=== PATIENT | female | born 1985 | race Caucasian/White ===

== ENCOUNTER 2021-01-23 13:06 | Emergency (ER) | payer BC, SELFPAY ==
--- NOTE | ~2021-01-23 | CT_ITS ---
EXAMINATION: CT abdomen pelvis wo con DATE: 01/23/2021 15:56 INDICATION: Left flank pain TECHNIQUE: Computed tomography (CT) of the abdomen and pelvis was performed without intravenous contr ast. The dose-length product (DLP) was 1030.53 mGy-cm. Automated exposure control and iterative recon struction technique were employed. COMPARISON: None FINDINGS: The lung bases are clear. The heart size is normal. The gallbladder is surgically absent. T he liver, spleen, pancreas, and adrenal glands are normal. There are two adjacent stones in the proxi mal left ureter which measure 6 mm in total and cause moderate left hydroureteronephrosis. No patholo gically enlarged abdominal or pelvic lymph nodes are identified. There is no free intraperitoneal gas or evidence of bowel obstruction. The appendix is normal. IMPRESSION: 1. Adjacent proximal left ureteral stones causing moderate left hydroureteronephrosis. Reviewed, dictated and finalized at location B. IMPRESSION: 1. Adjacent proximal left ureteral stones causing moderate left hydroureteronep hrosis.
--- NOTE | ~2021-01-23 | XR_ITS ---
EXAMINATION: XR abdomen/kub 1V DATE: 01/23/2021 15:52 INDICATION: Left flank pain. TECHNIQUE: A supine view of the abdomen on 2 radiographs was obtained. COMPARISON: CT abdomen and pelvis 01/23/2021 FINDINGS: There are no dilated loops of bowel. Surgical clips in the right upper quadrant are likely from cholecystectomy. There are two 3 mm stones in proximal left ureter at L3. There is a phlebolith in left pelvis. IMPRESSION: 1. Two 3 mm stones in proximal left ureter. Reviewed, dictated and finalized at location A.
[2021-01-23 13:19] VITALS: BP 158/111; PULSE 100; RESP 12; TEMP 36.4; O2SAT 100
[2021-01-23 13:31] LABS: Basophils Percent Auto 0.2 % (0.2-1.2); Eosinophils Absolute Auto 0.1 K/mm3 (0-0.3); Eosinophils Percent Auto 0.8 % (0-4.4); Hematocrit 40.6 % (37.0-47.0); Hemoglobin 13.2 g/dL (12.0-15.0); Immature Granulocyte Absolute 0.03 K/mm3 (0.00-0.031); Immature Granulocyte Percent A 0.2 % (0-0.5); Lymphocytes Absolute Auto 1.59 K/mm3 (0.9-3.2); Lymphocytes Percent Auto 12.7 % (18.3-44.2); Mean Corpuscular HGB Conc 32.5 g/dl (32-36); Mean Corpuscular Volume 89.2 fl (80-100); Mean Platelet Volume 8.9 fl (7.4-10.4); Monocytes Absolute Auto 0.5 K/mm3 (0.1-0.6); Monocytes Percent Auto 4.2 % (2.6-8.5); Neutrophils Absolute Auto 10.2 K/mm3 (1.3-6.7); Neutrophils Percent Auto 81.9 % (45.5-73.1); Platelet Count Result 315 k/mm3 (150-375); Red Blood Count 4.55 M/mm3 (4.2-5.4); Red Cell Distribution Width 13.8 % (11.5-14.5); White Blood Count 12.5 K/mm3 (4.5-10.0)
[2021-01-23 13:41] LABS: Anion Gap 10 mmol/L (8-16); Blood Urea Nitrogen 12 mg/dL (7-17); Calcium 9.1 mg/dL (8.4-10.2); Carbon Dioxide 22 mmol/L (22-30); Chloride 105 mmol/L (98-107); Estimated CRCL calculation 108 ml/min; Estimated Glomerular Filt Rate > 60; Glucose 89 mg/dL (65-105); Potassium 4.6 mmol/L (3.4-5.0); Sodium 137 mmol/L (137-145)
[2021-01-23 15:31] LABS: Add Urine Microscopic? YES; Appearance Urine Cloudy (Clear); Bacteria Urine Trace /hpf; Bilirubin Urine Negative (Negative); Blood Urine 3+ (Negative); Color Urine Amber (Yellow); Glucose Urine UA Negative (Negative); Ketones Urine Trace mg/dL (Negative); Leukocyte Esterase Ur Negative LEU/UL (Negative); Mucus Urine Rare /lpf; Nitrate Urine Negative (Negative); Protein Urine 1+ mg/dL (Negative); RBC Urine >75 /hpf (0-2); Specific Grav Ur 1.023 (1.001-1.035); Squamous Epithelial Cell Urine Moderate /hpf (Few); Urobilinogen Urine Negative mg/dL (<2.0)
--- NOTE | 2021-01-23 15:43 | ED.ABDPAIN ---
HPI - Abdominal Pain General Chief Complaint: Abdominal Pain Stated Complaint: Possible Kidney stone Time Seen by Provider: 01/23/21 15:18 Source: patient and RN notes reviewed Mode of arrival: ambulatory Limitations: no limitations History of Present Illness HPI narrative: This is a 35 year old female with history of kidney stones who presents for evaluation of left lower abdominal pain. She developed left lower abdominal pain at 9 am this morning. She reports her pain radiates to her left flank. She has associated nausea, vomiting with her pain. She has not taken anything for her pain. She denies hematuria. This pain does feel similar to previous episodes of kidney stone Related Data Allergies Allergy/AdvReac Type Severity Reaction Status Date / Time acetaminophen [From Percocet] Allergy Hallucinati Verified 01/23/21 16:14 ng codeine Allergy Unknown Verified 01/23/21 16:14 latex Allergy Unknown Verified 01/23/21 16:14 oxycodone [From Percocet] Allergy Hallucinati Verified 01/23/21 16:14 ng shellfish derived Allergy Unknown Verified 01/23/21 16:14 Sulfa (Sulfonamide Allergy Unknown Verified 01/23/21 16:14 Antibiotics) Review of Systems Review of Systems: All systems reviewed & are unremarkable except as noted in HPI and below PMFSH Past Medical History Medical History (Updated 01/23/21 @ 18:01 by Dorie Muñoz MD) Fibromyalgia Kidney stones Social History Social History (Updated 01/23/21 @ 15:47 by Dorie Muñoz MD) Smoking status: Never smoker Gender identity (if verbalized by the patient): Female Exam Const: General: no acute distress and alert Nutritional Appearance: obese Orientation/consciousness: patient oriented x3 Neck: Neck: no lymphadenopathy Resp: Effort & Inspection: normal respiratory effort and no retractions Auscultation: clear to auscultation bilaterally Cardio: Rate: regular rate Rhythm: regular rhythm Heart sounds: no murmurs GI: GI Palp: Yes Soft to palpation, No Tenderness to palpation present (GI) and No Guarding due to palpation present (GI) Auscultation: normal bowel sounds Skin: General skin exam: normal color Rashes: no rashes Neuro: General: patient oriented x3, moves all extremities and CN's II-XI intact bilaterally Psych: Mental Status: mental status grossly normal Affect: normal affect Course Reevaluation(s) Reevaluation #1: Patient reports her pain has improved. She is comfortable with discharge . She wants to follow up with her urologist back home. She is okay with hydrocodone for pain Date: 01/23/21 Time: 17:58 Vital Signs Vital signs: Vital Signs Temperature 97.5 F L 01/23/21 13:19 Pulse Rate 100 01/23/21 13:19 Respiratory Rate 12 01/23/21 13:19 Blood Pressure 158/111 H 01/23/21 13:19 Pulse Oximetry 100 01/23/21 13:19 Temperature 97.5 F L 01/23/21 13:19 Pulse Rate 80 01/23/21 18:16 Respiratory Rate 16 01/23/21 18:16 Blood Pressure 138/79 01/23/21 18:16 Pulse Oximetry 99 01/23/21 18:16 MDM - Abdominal Pain Lab Data Attestation: I reviewed the patient's lab results. Result diagrams: 01/23/21 13:26 01/23/21 13:26 Labs: Lab Results 01/23/21 01/23/21 01/23/21 Range/Units 13:26 13:26 15:13 WBC 12.5 H (4.5-10.0) K/mm3 RBC 4.55 (4.2-5.4) M/mm3 Hgb 13.2 (12.0-15.0) g/dL Hct 40.6 (37.0-47.0) % MCV 89.2 (80-100) fl MCH 29.0 (26-34) pg MCHC 32.5 (32-36) g/dl RDW 13.8 (11.5-14.5) % Plt Count 315 (150-375) k/mm3 MPV 8.9 (7.4-10.4) fl Immature Gran % (Auto) 0.2 (0-0.5) % Neut % (Auto) 81.9 H (45.5-73.1) % Lymph % (Auto) 12.7 L (18.3-44.2) % [place] % (Auto) 4.2 (2.6-8.5) % Eos % (Auto) 0.8 (0-4.4) % Baso % (Auto) 0.2 (0.2-1.2) % Lymph # (Auto) 1.59 (0.9-3.2) K/mm3 [place] # (Auto) 0.5 (0.1-0.6) K/mm3 Eos # (Auto) 0.1 (0-0.3) K/mm3 Baso # (Auto) 0.0 (0.0-
[2021-01-23 15:45] VITALS: BP 149/88; PULSE 99; RESP 18; O2SAT 100
[2021-01-23] MEDS: SODIUM CHLORIDE 0.9% IV 1,000 ML 999 ML IV CONT (16:16)
[2021-01-23] MEDS: ONDANSETRON INJ 4 MG/2 ML VIAL IV PUSH (16:16)
[2021-01-23] MEDS: HYDROmorphone HCL INJ (*CRX) 1 MG/ML SYR IV PUSH (17:06)
[2021-01-23] MEDS: TAMSULOSIN HCL 0.4 MG CAPSULE PO (17:06)
[2021-01-23 18:16] VITALS: BP 138/79; PULSE 80; RESP 16; O2SAT 99
== END 2021-01-23 18:18 | disposition home or self-care (01) ==
PROVIDERS: Emergency Medicine; Emergency Provider General Practice
DX: N13.2 Hydronephrosis with renal and ureteral calculous obstruction (principal); M79.7 Fibromyalgia
CPT/HCPCS: 36415; 74018; 74176; 80048; 81001; 81025; 85025; 87086; 87088; 96361; 96365; 96375; 99284; A9270; J0131; J1170; J2405; J7030